=== PATIENT | female | born 1940 | race Caucasian/White ===

== ENCOUNTER → 2020-12-12 | Outpatient (CLI) | payer MEDICARE ==
--- NOTE | 2020-12-12 15:42 | XCELERA REPORT ---
[address] [address] Transthoracic Echocardiogram Report Name: LORENZA COSTA Age: 80 yrs Gender: Female : 1940 Patient Status: Outpatient Patient Location: [facility] Study Date: 12/12/2020 10:48 AM History: Preop CVS Exam Cardiac Murmur Height: 61 in Weight: 113 lb BSA: 1.5 m2 Reason For Study: MURMUR Ordering Physician: BEATRIZ PINEDA Performed By: Alma Green Interpretation Summary Left ventricular systolic function is normal. The Ejection Fraction estimate is 60-65% The right ventricle is normal in size and function. The aortic root is mildly dilated There is a trace amount of mitral regurgitation There is no aortic valve stenosis There is a trace amount of aortic regurgitation There is a mild amount of tricuspid regurgitation Doppler findings do not suggest pulmonary hypertension. There is no pericardial effusion. MMode/2D Measurements & Calculations RVDd: 2.1 cm LVIDd: 4.0 cm FS: 32.1 % Ao root diam: 3.0 cm IVSd: 1.0 cm LVIDs: 2.7 cm EDV(Teich): 71.1 ml LVPWd: 0.77 cm ESV(Teich): 27.9 ml Ao root area: 6.9 cm2 EF(Teich): 60.8 % Doppler Measurements & Calculations MV E max miguel: MV dec slope: Ao V2 max: LV V1 max P.0 cm/sec 417.9 cm/sec2 119.1 cm/sec 3.0 mmHg MV A max miguel: MV dec time: 0.18 secAo max P.7 mmHgLV V1 max: 91.4 cm/sec 86.6 cm/sec MV E/A: 0.81 PA V2 max: PI end-d miguel: TR max miguel: 81.0 cm/sec 83.3 cm/sec 232.4 cm/sec PA max P.6 mmHg TR max P.6 mmHg Left Ventricle The left ventricle is normal in size. There is borderline concentric left ventricular hypertrophy. Left ventricular systolic function is normal. The Ejection Fraction estimate is 60-65%. Doppler measurements suggest impaired left ventricular relaxation, which is associated with grade I/IV or mild diastolic dysfunction. Right Ventricle The right ventricle is normal in size and function. Atria The right atrium is normal. The left atrial size is normal. The interatrial septum is intact with no evidence for an atrial septal defect. There is no Doppler evidence for an interatrial shunt. Mitral Valve The mitral valve is grossly normal. There is no evidence of mitral valve prolapse. There is no mitral valve stenosis. There is a trace amount of mitral regurgitation. Aortic Valve The aortic valve opens well. The aortic valve is trileaflet. The aortic valve is sclerotic, but shows no functional abnormality. There is no aortic valve stenosis. There is a trace amount of aortic regurgitation. Tricuspid Valve The tricuspid valve is normal in structure and function. There is no tricuspid stenosis. There is a mild amount of tricuspid regurgitation. Right ventricular systolic pressure is estimated to be within upper limit of normal. Doppler findings do not suggest pulmonary hypertension. Pulmonic Valve The pulmonic valve is not well visualized. There is no pulmonic valvular stenosis. There is a mild amount of pulmonic regurgitation. Great Vessels The ascending aorta measures 3.9 cm mm in size. The aortic root is mildly dilated. The inferior vena cava appeared normal and decreased > 50% with respiration (RAP 5-10 mmHg). Effusions There is no pericardial effusion. : BEATRIZ PINEDA Anil
== END ==
LOC: SP 10:29
PROVIDERS: ATTEND Internal Medicine
DX: R01.1 Cardiac murmur, unspecified (principal)
CPT/HCPCS: 93306